=== PATIENT | male | born 1975 | race African-American/Black ===

== ENCOUNTER 2018-09-11 11:39 | Day surgery (SDC) | payer OTHER ==
[~2018-09-11 11:39] MED LIST: ACETAMINOPHEN 1,000 MG/100 ML BTL IV ONE
[2018-09-11] MEDS ORDERED: KETAMINE HCL 100MG/1ML VIAL INJ ONE (11:40)
[2018-09-11] MEDS ORDERED: PROPOFOL 10 MG/ML VIAL IV ONE (11:40)
--- NOTE | 2018-09-12 10:00 | Operative Note ---
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 OPERATION: Excision of dorsal scapholunate ganglion of the left wrist. DESCRIPTION OF PROCEDURE: This 43-year-old male was taken to the operating room and placed in the supine position on the operating room table. General anesthetic was administered. The left upper extremity was elevated. It was prepped with Hibiclens and draped in the usual sterile fashion. It was exsanguinated and the tourniquet inflated to 250 mmHg. A dorsal incision was made in the left wrist overlying the dome of the ganglion at the dorsal scapholunate joint. The ganglion easily identified after blunt and sharp dissection was carried out down to the level of the ganglion, and the extensor tendons were retracted side to side to expose the dome of the ganglion. Then using blunt and sharp dissection, we followed the ganglion down to the joint capsule and it was excised. The stalk of the ganglion emanating from the scapholunate joint was excised as well. We searched other areas in the vicinity to look for other satellite ganglia but none were identified. The wound was copiously irrigated and hemostasis obtained with the electrocautery. The subcutaneous tissue was closed with 4-0 Vicryl and the skin with a running 4-0 nylon suture. Sterile dressings were applied with a plaster splint, AP plaster mold, and very slight wrist palmar flexion. GROSS PATHOLOGY: This patient demonstrated a ganglion cyst which was multilobulated emanating from the scapholunate joint. It was excised as described above. The operative procedure was performed using 3.5 loop magnification. CC: Tia Kapoor DO [facility]ITAL[facility]eghann
== END 2018-09-11 14:10 | disposition home or self-care (01) ==
LOC: SUR 11:39
PROVIDERS: ATTEND Orthopaedic Surgery
DX: M67.432 Ganglion, left wrist (principal)
CPT/HCPCS: 25111; 01810; J3490